=== PATIENT | male | born 1955 | race Caucasian/White ===

== ENCOUNTER 2024-04-05 19:11 | Emergency (ER) | payer MEDICARE, SELFPAY ==
[2024-04-05 19:14] VITALS: BP 165/84; PULSE 87; RESP 16; TEMP 37; O2SAT 95
[2024-04-05] MEDS: Doxycycline Hyclate 100 MG, 2 CAPS/BTL PO (20:32)
--- NOTE | 2024-04-06 19:03 | W.ED.GENAD ---
Discharge Plan Disposition Patient Disposition: Home Condition: Stable Discharge Details Clinical Impression: Tick bite Primary Care Provider: [facility] Provider: Priscilla Hanson Home Meds and New Rx's Prescriptions: Continued lisinopril 5 mg tablet 5 mg PO DAILY Discharge Instructions Instructions: Tick Bite (ED) Additional Instructions: You have 2 tablets of doxycycline or 200 mg, if you notice a tick that is been attached for greater than 36 hours and is engorged, take the prophylactic dose of doxycycline to prevent Lyme Otherwise keep all your wounds clean and dry, you may apply bacitracin topically Please return earlier should you have redness, swelling, fever or should any new concerns arise Discharge Data Discharge Date/Time-TO BE ENTERED AT DEPARTURE: 04/05/24 21:00 HPI General Date/Time Provider Initiated Documentation: 04/05/24 19:18. HPI Narrative: This 68-year-old male presents with report of several tick bites as he was working in the field. He states that the ticks have not been attached for longer than 36 hours. The reason why he presents is because he has a tick in the gluteal cleft region and is having difficulty removing it. He was out in the grass today and was not around any ticks yesterday. Related Data Home Medications Medication Instructions Recorded Confirmed lisinopril 5 mg tablet 5 mg PO DAILY 04/05/24 04/05/24 Allergies Allergy/AdvReac Type Severity Reaction Status Date / Time No Known Allergies Allergy Unverified 04/05/24 19:18 General Stated Complaint: AnimalBite CHELE: 5 Course Vital Signs Vital signs: Vital Signs Temperature 37.0 C 04/05/24 19:14 Pulse 87 04/05/24 19:14 Respiratory Rate 16 04/05/24 19:14 Blood Pressure 165/84 H 04/05/24 19:14 Pulse Oximetry 95 04/05/24 19:14 Temperature 37.0 C 04/05/24 19:14 Pulse 87 04/05/24 19:14 Respiratory Rate 16 04/05/24 19:14 Respiratory Effort Normal 04/05/24 19:17 Blood Pressure 165/84 H 04/05/24 19:14 Pulse Oximetry 95 04/05/24 19:14 Pain Level 2 04/05/24 19:14 Medical Decision Making 68-year-old male presenting with tick bite, tick still attached, removed from the gluteal cleft incident. Patient states that tick was attached for less than 36 hours will not administer prophylaxis. Encouraged to keep wound clean and dry. Return precautions reviewed and patient expressed understanding Quality:SDOH Health Related Social Needs: No Data to Display [facility] Social History Smoking risk assessment performed?: No
== END 2024-04-05 21:00 | disposition home or self-care (01) ==
LOC: ER 04-06 05:18
PROVIDERS: Emergency Provider Physician Assistant
DX: S30.861A Insect bite (nonvenomous) of abdominal wall, initial encounter (principal); W57.XXXA Bitten or stung by nonvenomous insect and other nonvenomous arthropods, initial encounter; Y93.89 Activity, other specified; Y92.838 Other recreation area as the place of occurrence of the external cause
CPT/HCPCS: 99283